=== PATIENT | female | born 2000 | race African-American/Black ===

== ENCOUNTER 2022-11-08 13:11 | Outpatient (CLI) | payer BC, SELFPAY | END 2022-11-08 13:12 | disposition home or self-care (01) | LOC: AMB 11-09 00:23 | PROVIDERS: PCP Student in an Organized Health Care Education/Training Program; Visit Provider Family Medicine | DX: R45.851 Suicidal ideations (principal) | CPT/HCPCS: A0425; A0429 ==

== ENCOUNTER 2022-11-08 13:35 | Emergency (ER) | payer BC, SELFPAY ==
[2022-11-08 13:37] VITALS: BP 128/78; PULSE 74; RESP 16; TEMP 36.7; O2SAT 100; BMI 19.9
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
[2022-11-08 14:58] LABS: Basophils Percent Auto 0.7 % (0.0-3.0); Eosinophils Percent Auto 0.5 % (0.0-7.0); Immature Granulocytes Pct Auto 0.7 %; Lymphocytes Percent Auto 35.4 % (20-44); Mean Corpuscular HGB Conc 32 gm/dL (32-36); Mean Corpuscular Hemoglobin 27 pg (26-34); Mean Corpuscular Volume 85 fL (80-100); Monocytes Percent Auto 7.5 % (0.0-11.0); Neutrophils Percent Auto 55.2 % (42.0-72.0); Platelet Count* 250 K/uL (140-440); RDW Coefficient of Variation % 15.6 % (11.5-15.5); Red Blood Count 4.48 m/uL (4.00-5.20); White Blood Count* 4.24 K/uL (4.50-11.00)
[2022-11-08 15:00] LABS: Slide Review Reflex No
[2022-11-08 15:09] LABS: Albumin* 4.3 g/dL (3.3-5.0); Chloride* 109 mmol/L (96-114); Potassium* 4.5 mmol/L (3.6-5.1); Sodium* 139 mmol/L (135-149)
[2022-11-08 15:11] LABS: Bilirubin Total* 1.2 mg/dL (0.1-1.5); Carbon Dioxide* 25 mmol/L (20-32); Creatinine* 0.6 mg/dL (0.5-1.5); Est. Creatinine Clearance* 130.63; Estimated Glomerular Filt Rate 131 ml/min
[2022-11-08 15:12] LABS: Alanine Aminotransferase* 14 U/L (4-35); Alkaline Phosphatase* 57 U/L (40-150); Aspartate Amino Transferase* 18 U/L (12-35); Blood Urea Nitrogen* 10 mg/dL (5-24); Calcium* 8.9 mg/dL (8.4-10.6); Glucose* 79 mg/dL (60-115); Total Protein* 7.4 g/dL (6.0-8.3)
[2022-11-08 15:13] LABS: Acetaminophen* < 10.0 ug/mL (10.0-30.0); Ethanol* < 0.01 % (0.01-0.03); Salicylate* < 1.0 mg/dL (1.0-10)
[2022-11-08 15:49] LABS: Amphetamine Screen Urine Negative (Negative); Barbiturate Screen Urine Negative (Negative); Benzodiazepines Screen Urine Negative (Negative); Cannabinoid Screen Urine Negative (Negative); Cocaine Screen Urine Negative (Negative); Methadone Screen Urine Negative (Negative); Methamphetamines Screen Urine Negative (Negative); Opiate Screen Urine Negative (Negative); Oxycodone Screen Urine Negative (Negative); Phencyclidine Screen Urine Negative (Negative); Tricyclic Antidepressant Urine Negative (Negative)
[2022-11-08] MEDS: IBUPROFEN 200 MG TABLET 400 MG PO (15:53)
[2022-11-08 15:58] LABS: Appearance Urine Cloudy (Clear); Bilirubin Urine Negative (Negative); Blood Urine Negative (Negative); Color Urine Yellow (Yellow); Glucose Urine Negative (Negative); Ketones Urine Negative (Negative); Leukocyte Esterase Urine Negative (Negative); Nitrite Urine Negative (Negative); Protein Urine Negative (Negative); Specific Gravity Urine >= 1.030 (1.000-1.030); pH Urine 6.5 (5.0-8.5)
[2022-11-08 16:18] LABS: Bacteria Urine Few; RBC Urine 0-2 (0-2); Squamous Epithelial Cell Urine Moderate (None-Few); Ur HCG Qualitative* Negative (Negative)
[2022-11-08 21:54] LABS: Vitamin D 25 Hydroxy* 16 ng/mL (30-80)
[2022-11-08 22:08] LABS: Thyroid Stimulating Hormone* 0.929 uIU/mL (0.270-4.20)
== END 2022-11-08 18:16 | disposition home or self-care (01) ==
PROVIDERS: Emergency Provider Family Medicine; PCP Student in an Organized Health Care Education/Training Program
DX: F32.9 Major depressive disorder, single episode, unspecified (principal); F43.9 Reaction to severe stress, unspecified
CPT/HCPCS: 36415; 80053; 80143; 80179; 80306; 81003; 81015; 81025; 82077; 82306; 83735; 84443; 85025; 87086; 99283; A9270